=== PATIENT | female | born 1990 | race Caucasian/White ===

== ENCOUNTER 2017-01-16 10:48 | Emergency (ER) | payer BC, OTHER ==
[2017-01-16 11:16] VITALS: BP 154/80
--- NOTE | 2017-01-16 11:47 | UC ---
Psychiatric Complaint HPI - HPI Summary HPI Summary: social anxiety x years looking for a new job and wants to go for interviews pt. has social anxiety and gets very nervous during interviews with sweaty palms , racing heart rate requesting beta siria to use as needed - History Of Current Complaint Chief Complaint: UCGeneralIllness Stated Complaint: ANXIETY Time Seen by Provider: 01/16/17 11:08 Hx Obtained From: Patient Hx Last Menstrual Period: unknown, does not get a period due to endometriosis ?: No Onset/Duration: Gradual Onset, Lasting Weeks Timing: Hours - 2 Severity Initially: Moderate Severity Currently: Moderate Character: Anxious Aggravating Factor(s): Recent Stress - job interview Alleviating Factor(s): Nothing Associated Signs And Symptoms: Social Withdrawal, Social Isolation - Allergies/Home Medications Allergies/Adverse Reactions: Allergies Allergy/AdvReac Type Severity Reaction Status Date / Time Amoxicillin Allergy Airway Verified 01/16/17 11:16 Obstruction PMH/Surg Hx/FS Hx/Imm Hx Psychological History: Anxiety - Surgical History Surgical History: Yes Surgery Procedure, Year, and Place: appy 2006. ovarian cyst removal 2014 - Family History Known Family History: Negative: Diabetes - Social History Alcohol Use: Rare Substance Use Type: None Smoking Status (MU): Never Smoked Tobacco - Immunization History Most Recent Influenza Vaccination: no Review of Systems Constitutional: Negative Skin: Negative Eyes: Negative ENT: Negative Respiratory: Negative Is Patient Immunocompromised?: No All Other Systems Reviewed And Are Negative: Yes Physical Exam Triage Information Reviewed: Yes Appearance: Well-Appearing, No Pain Distress, Well-Nourished Vital Signs: Initial Vital Signs Temp 98.5 F 01/16/17 11:10 Pulse 102 01/16/17 11:10 Resp 15 01/16/17 11:10 BP 154/80 01/16/17 11:10 Pulse Ox 100 01/16/17 11:10 Vital Signs Reviewed: Yes Eyes: Positive: Conjunctiva Clear ENT: Positive: Normal ENT inspection, Hearing grossly normal, Pharynx normal Neck exam: Normal Neck: Positive: Supple, Nontender, No Lymphadenopathy Respiratory: Positive: Chest non-tender, Lungs clear, Normal breath sounds Cardiovascular: Positive: Tachycardia Abdominal Exam: Normal Psychological: Positive: Age Appropriate Behavior Skin Exam: Normal UC Physical Exam Vital Signs On Initial Exam: Initial Vitals Temp Pulse Resp BP Pulse Ox 98.5 F 102 15 154/80 100 01/16/17 11:10 01/16/17 11:10 01/16/17 11:10 01/16/17 11:10 01/16/17 11:10 - Psychiatric Exam Psychiatric: Normal Patient Medically Stable for Psych Evaluation/Referral/Trans: Yes Psych Complaint Course/Dx - Differential Dx/Diagnosis Provider Diagnoses: social anxiety Discharge - Discharge Plan Condition: Stable Disposition: HOME Prescriptions: Propranolol TAB* [Inderal TAB*] 40 mg PO DAILY PRN #20 tab PRN Reason: Anxiety Patient Education Materials: Social Anxiety Disorder (ED) Referrals: No Primary Care Phys,NOPCP [Primary Care Provider] - 7 Days Additional Instructions: may take 40 mg of propranolol 30 to 60 min prior to anxiety inducing situation
== END 2017-01-16 11:43 | disposition home or self-care (01) ==
LOC: UCCORT 10:48
DX: F41.9 Anxiety disorder, unspecified (principal); Z88.1 Allergy status to other antibiotic agents
CPT/HCPCS: 99212; G0463

== ENCOUNTER 2018-05-23 12:43 | Emergency (ER) | payer OTHER ==
[2018-05-23 13:30] VITALS: BP 157/86
--- NOTE | 2018-05-23 13:52 | UC ---
Respiratory Complaint HPI - HPI Summary HPI Summary: Pt c/o dry cough and chest tightness that began ~ "a few days ago" and states that it is improving. She is requesting a return to work note. - History of Current Complaint Chief Complaint: UCRespiratory Stated Complaint: HEAD/CHEST CONGESTION,TIRED Time Seen by Provider: 05/23/18 13:43 Hx Obtained From: Patient Hx Last Menstrual Period: n/a ?: No Onset/Duration: Sudden Onset, Lasting Days, Still Present Timing: Intermittent Episodes Severity Initially: Mild Severity Currently: Mild Pain Intensity: 4 Character: Cough: Nonproductive Aggravating Factors: Exertion, Deep Breaths, Recumbent Position Alleviating Factors: Nothing Associated Signs And Symptoms: Positive: URI - Risk Factors Pulmonary Embolism Risk Factors: Negative Cardiac Risk Factors: Negative Pseudomonas Risk Factors: Negative Tuberculosis Risk Factors: Negative - Allergies/Home Medications Allergies/Adverse Reactions: Allergies Allergy/AdvReac Type Severity Reaction Status Date / Time amoxicillin Allergy Severe Rash Verified 05/23/18 13:31 Home Medications: Home Medications Ibuprofen TAB* [Motrin TAB* 600 MG] 600 mg PO Q6H PRN 05/23/18 [History Confirmed 05/23/18] Norethindrone Acetate [Aygestin] 10 mg PO DAILY 05/23/18 [History Confirmed ] guaiFENesin ER TAB [Mucinex*] 1,200 mg PO BID PRN 05/23/18 [History Confirmed ] PMH/Surg Hx/FS Hx/Imm Hx Previously Healthy: Yes - Surgical History Surgical History: Yes Surgery Procedure, Year, and Place: appy 2006. ovarian cyst removal 2014 - Family History Known Family History: Negative: Diabetes - Social History Occupation: Employed Full-time Lives: With Family Alcohol Use: Rare Substance Use Type: None Smoking Status (MU): Never Smoked Tobacco Have You Smoked in the Last Year: No - Immunization History Most Recent Influenza Vaccination: no Review of Systems All Other Systems Reviewed And Are Negative: Yes Constitutional: Positive: Negative Skin: Positive: Negative Eyes: Positive: Negative ENT: Positive: Negative Respiratory: Positive: Cough Cardiovascular: Positive: Negative Gastrointestinal: Positive: Negative Genitourinary: Positive: Negative Motor: Positive: Negative Neurovascular: Positive: Negative Musculoskeletal: Positive: Negative Neurological: Positive: Negative Psychological: Positive: Negative Is Patient Immunocompromised?: No Physical Exam Triage Information Reviewed: Yes Appearance: Well-Appearing Vital Signs: Initial Vital Signs Temp 99.1 F 05/23/18 13:17 Pulse 140 05/23/18 13:17 Resp 22 05/23/18 13:17 BP 157/86 05/23/18 13:17 Pulse Ox 100 05/23/18 13:17 Vital Signs Reviewed: Yes Eye Exam: Normal ENT: Positive: Nasal congestion Dental Exam: Normal Neck exam: Normal Respiratory Exam: Normal Cardiovascular Exam: Normal Musculoskeletal Exam: Normal Neurological Exam: Normal Psychological Exam: Normal Skin Exam: Normal UC Diagnostic Evaluation - Laboratory O2 Sat by Pulse Oximetry: 100 Respiratory Course/Dx - Differential Dx/Diagnosis Differential Diagnosis/HQI/PQRI: Bronchitis Provider Diagnosis: Cough Discharge - Sign-Out/Discharge Documenting (check all that apply): Patient Departure All imaging exams completed and their final reports reviewed: No Studies - Discharge Plan Condition: Stable Disposition: HOME Prescriptions: Albuterol HFA INHALER* [Ventolin HFA Inhaler*] 1 - 2 puff INH Q6H PRN #1 mdi PRN Reason: Sob/Wheezing Benzonatate CAP* [Tessalon 100 MG CAP*] 100 mg PO Q8H PRN #21 cap PRN Reason: Cough Patient Education Materials: Acute Cough (ED) Forms: *Work Release Referrals: [facility] [Outside] No Primary Care Phys,NOPCP [Primary Care Provider] - - Billing Disposition and Condition Condition: STABLE Disposition: Home
== END 2018-05-23 14:01 | disposition home or self-care (01) ==
LOC: UCCORT 12:43
DX: R05 Cough (principal); R07.89 Other chest pain; R09.81 Nasal congestion; Z88.0 Allergy status to penicillin
CPT/HCPCS: 99212; G0463

== ENCOUNTER 2018-07-03 19:14 | Emergency (ER) | payer OTHER ==
[2018-07-03 20:36] VITALS: BP 153/82
[2018-07-03 20:48] LABS: Influenza A Molecular POSITIVE (Negative)
--- NOTE | 2018-07-03 20:57 | UC ---
UC General HPI - HPI Summary HPI Summary: 1 DAY HX BODYACHES, COUGH AND FEVER. PT WAS EXPOSED TO THE FLU. + CONGESTION. NO ASTHMA. - History of Current Complaint Chief Complaint: UCGeneralIllness Stated Complaint: BODY ACHES/COUGH/CONGESTION Time Seen by Provider: 07/03/18 20:44 Hx Obtained From: Patient Hx Last Menstrual Period: unknown, oral bcp Onset/Duration: Sudden Onset Timing: Constant Pain Intensity: 8 Associated Signs & Symptoms: Positive: Cough, Fever - Allergy/Home Medications Allergies/Adverse Reactions: Allergies Allergy/AdvReac Type Severity Reaction Status Date / Time amoxicillin Allergy Severe Rash Verified 07/03/18 20:33 PMH/Surg Hx/FS Hx/Imm Hx Previously Healthy: Yes - Surgical History Surgical History: Yes Surgery Procedure, Year, and Place: appy 2006. ovarian cyst removal 2014 - Family History Known Family History: Negative: Diabetes - Social History Occupation: Employed Full-time Alcohol Use: Rare Substance Use Type: None Smoking Status (MU): Never Smoked Tobacco Have You Smoked in the Last Year: No - Immunization History Most Recent Influenza Vaccination: no Review of Systems All Other Systems Reviewed And Are Negative: Yes Constitutional: Positive: Fever, Chills Respiratory: Positive: Cough Musculoskeletal: Positive: Myalgia Neurological: Positive: Headache Physical Exam Triage Information Reviewed: Yes Appearance: Well-Appearing Vital Signs: Initial Vital Signs Temp 99.9 F 07/03/18 20:32 Pulse 125 07/03/18 20:32 Resp 18 07/03/18 20:32 BP 153/82 07/03/18 20:32 Pulse Ox 100 07/03/18 20:32 Vital Signs Reviewed: Yes Eyes: Positive: Conjunctiva Clear ENT: Positive: Pharynx normal, TMs normal. Negative: Nasal drainage Neck: Positive: Supple, Nontender, No Lymphadenopathy Respiratory: Positive: Lungs clear, Normal breath sounds Cardiovascular: Positive: No Murmur, Tachycardia Abdomen Description: Positive: Nontender, No Organomegaly, Soft Bowel Sounds: Positive: Present Musculoskeletal: Positive: ROM Intact Neurological: Positive: Alert Psychological: Positive: Age Appropriate Behavior Skin Exam: Normal Course/Dx - Course Course Of Treatment: NO HX HTN. BP ILLNESS RELATED. HR ELEVATED WHICH GOES ALONG WITH THE FLU - Diagnoses Provider Diagnosis: Influenza A Discharge - Sign-Out/Discharge Documenting (check all that apply): Patient Departure All imaging exams completed and their final reports reviewed: No Studies - Discharge Plan Condition: Stable Disposition: HOME Prescriptions: Oseltamivir CAP* [Tamiflu CAP*] 75 mg PO BID 5 Days #9 cap Patient Education Materials: Influenza (DC) Forms: *Work Release Referrals: DURAN Emanuel [Medical Doctor] - Additional Instructions: FOLLOW UP IF NOT BETTER IN 5-7 DAYS OR SOONER IF WORSE. - Billing Disposition and Condition Condition: STABLE Disposition: Home - Attestation Statements Provider Attestation: Per institutional requirements, I have reviewed the chart, however, I was not consulted specifically or made aware of this patient by the midlevel provider. I did not personally evaluate, interact with , or disposition this patient.
[2018-07-03] MEDS ORDERED: Oseltamivir CAP* 75 MG CAP PO ONE (21:02)
== END 2018-07-03 21:09 | disposition home or self-care (01) ==
LOC: UCCORT 19:14
DX: J10.1 Influenza due to other identified influenza virus with other respiratory manifestations (principal); Z88.0 Allergy status to penicillin
CPT/HCPCS: 99212; A9270-GY; G0463